=== PATIENT | female | born 1985 | race African-American/Black ===

== ENCOUNTER 2022-05-26 11:15 | Emergency (ER) | payer BC, MEDICAID | END 2022-05-26 21:51 | disposition home or self-care (01) | LOC: ERS 11:15 | DX: Z53.21 Procedure and treatment not carried out due to patient leaving prior to being seen by health care provider (principal) ==

== ENCOUNTER → 2022-05-26 | Emergency (ER) | payer MEDICAID, SELFPAY ==
[2022-05-26 21:17] LABS: Pregnancy Test - Urine (BHCG) Negative (Negative); Pregu Control Background? CLEAR/WHITE (CLR/WHITE); Pregu Control Bar Appear? YES (CONTROL BAR)
[2022-05-26 21:18] LABS: Bacteria/HPF 4+ HPF (None Seen); Bilirubin Negative (Negative); Blood, Urine Negative (Negative); Clarity Clear (Clear); Glucose, Urine (Dipstick) Normal (Negative); Ketone, Urine Negative (Negative); Leukocyte 25 Leu/uL (Negative); Nitrite 2+ (Negative); Protein, Urine (Dipstick) 20 mg/dL (Neg-Trace); RBC/HPF 0-3 HPF (0-3); Specific Gravity 1.034 (1.002-1.036); Specific Gravity, Urine 1.034 (1.002-1.036); Squamous Epithelial 0-3 HPF (0-3); Urobilinogen Normal mg/dL (Less than 2)
== END ==
LOC: ERS 18:41
DX: N10 Acute pyelonephritis (principal)
CPT/HCPCS: 81003; 81015; 81025; 87077; 87086; 87186; 99283

== ENCOUNTER 2022-09-15 07:39 | Emergency (ER) | payer BC ==
[2022-09-15] MEDS ORDERED: Ketorolac Tromethamine 30 MG/ML VIAL ONE (09:08)
== END 2022-09-15 08:24 | disposition home or self-care (01) ==
LOC: ERS 07:39
DX: S39.012A Strain of muscle, fascia and tendon of lower back, initial encounter (principal); X58.XXXA Exposure to other specified factors, initial encounter
CPT/HCPCS: 96372; 99283; J1885